=== PATIENT | male | born 1990 | race Two or more races ===

== ENCOUNTER 2024-02-01 12:49 | Emergency (ER) | payer MEDICAID ==
[~2024-02-01] VITALS: Ht 170.2 cm; Wt 81.6 kg
[2024-02-01] MEDS ORDERED: SULF1TAB48 PO (13:29)
[2024-02-01] MEDS ORDERED: IBUP-1953 PO (14:15)
[2024-02-01 18:44] VITALS: BP 128/67; TEMP 98.3; O2SAT 98
== END 2024-02-01 18:45 | disposition home or self-care (01) ==
LOC: ER 12:59
DX: K65.1 Peritoneal abscess (principal); F17.200 Nicotine dependence, unspecified, uncomplicated; Z79.899 Other long term (current) drug therapy; Z59.02 Unsheltered homelessness; Z60.2 Problems related to living alone
CPT/HCPCS: 99283; 10060; A6403